=== PATIENT | female | born 1955 | race Caucasian/White ===

== ENCOUNTER → 2016-08-15 | Day surgery (SDC) | payer OTHER, BC ==
[2016-08-09 08:08] VITALS: Ht 175.3 cm; Wt 65.5 kg
[~2016-08-15] VITALS: Ht 175.3 cm; Wt 65.5 kg
[~2016-08-15] MED LIST: ASPCH81 PO; CALCTAB65 PO; LIDOCAINE HCL 2% 2 ML VIAL (20MG/ML) ONE; MIDAZOLAM HCL 1 MG/ML 2ML VIAL ONE; MULT-884 PO; OMEG12006 PO; ONDANSETRON INJ 2 MG/ML 2 ML VIAL ONE; PROPOFOL IV EMULSION 10 MG/ML 20 ML VIAL IV ONE; SODIUM CHLORIDE 0.9% 500ML 500 ML IV ONE; TURM1CAP4 PO; VTMD1000 PO; [UNRECOGNIZED DRUG - CODE] PO
--- NOTE | 2016-08-15 08:38 | Endo History and Physical ---
History & Physical Date of Service: August 15, 2016. Chief Complaint: Screening Referring Physician: Hitesh Reilly History of Present Illness 61 yo CF who presents for screening colonoscopy. Past Surgical History Hx Cardiac Surgery: No Hx Internal Defibrillator: No Hx Pacemaker: No Hx Abdominal Surgery: Yes (ADDISON BSO) Hx of Implantable Prosthesis: No Hx Post-Op Nausea and Vomiting: No Hx Cancer Surgery: No Hx Thoracic Surgery: No Hx Orthopedic: Yes (GANGLION CYST REMOVED) Hx Urinary Tract Surgery: No Family History None Social History Smoking Status: Former Smoker Hx Substance Use: No Hx Alcohol Use: No Allergies Coded Allergies: No Known Allergies (Unverified , 08/09/16) Current Medications Reported Home Medications Medications Dose Route/Sig Max Daily Dose Days Date Category Turmeric (Turmeric (Curcuma Longa)) 500 Mg Cap 2 Cap PO QAM 06/29/16 Reported Calcium 500 + D (Calcium Carbonate-Vitamin D) 1 Tab Tab 1 Tab PO QAM 02/20/14 Reported Vitamin D3 (Cholecalciferol) 1,000 Inter.unit Tab 1,000 PO QAM 02/20/14 Reported Vitamin B-12 Tr (Cyanocobalamin) 1,000 Mcg Tab 1,000 Mcg PO QAM 02/20/14 Reported Multi Vitamin Daily (Multiple Vitamin) 1 Tab Tab 1 Tab PO QAM 02/20/14 Reported Aspirin Low Strength (Aspirin) 81 Mg Chew 81 Mg PO HS 02/20/14 Reported [place] 3 ([place]-3 Fatty Acids) 1 Cap Cap 1 Cap PO QAM 02/20/14 Reported Vital Signs Weight (Kilograms): 65.45 Height (Feet): 5 Height (Inches): 9 Date Time Temp Pulse Resp B/P Pulse Ox O2 Delivery O2 Flow Rate FiO2 08/15/16 08:00 36.6 60 16 159/94 100 Room Air Physical Exam General Appearance: WD/WN, no apparent distress Respiratory/Chest: Auscultation: breath sounds normal Cardiovascular: Heart Auscultation: RRR Abdomen: Bowel Sounds: normal Inspection & Palpation: soft, non-distended, no tenderness, guarding & rebound Assessment and Plan Assessment: 61 yo CF who presents for screening colonoscopy. Plan: Proceed with colonoscopy
--- NOTE | 2016-08-15 09:18 | Anesthesiology Progress Note ---
Anesthesia Post Op Note Date & Time August 15, 2016 at 09:18 Vital Signs Pain Intensity: 0 Vital Signs Past 12 Hours Date Time Temp Pulse Resp B/P Pulse Ox O2 Delivery O2 Flow Rate FiO2 08/15/16 08:00 36.6 60 16 159/94 100 Room Air Notes Mental Status: alert / awake / arousable, participated in evaluation Pt Amnestic to Procedure: Yes Nausea / Vomiting: adequately controlled Pain: adequately controlled Airway Patency, RR, SpO2: stable & adequate BP & HR: stable & adequate Hydration State: stable & adequate Anesthetic Complications: no major complications apparent
--- NOTE | 2016-08-15 09:27 | Discharge Instructions ---
Endoscopy Patient Instructions Date / Procedure(s) Performed August 15, 2016. Colonoscopy Allergy Information Coded Allergies: No Known Allergies (Unverified , 08/09/16) Discharge Date / Findings August 15, 2016. Internal hemorrhoids Medication Instructions OK to resume all medications today as prescribed Reported Home Medications Medications Dose Route/Sig Max Daily Dose Days Date Category Turmeric (Turmeric (Curcuma Longa)) 500 Mg Cap 2 Cap PO QAM 06/29/16 Reported Calcium 500 + D (Calcium Carbonate-Vitamin D) 1 Tab Tab 1 Tab PO QAM 02/20/14 Reported Vitamin D3 (Cholecalciferol) 1,000 Inter.unit Tab 1,000 PO QAM 02/20/14 Reported Vitamin B-12 Tr (Cyanocobalamin) 1,000 Mcg Tab 1,000 Mcg PO QAM 02/20/14 Reported Multi Vitamin Daily (Multiple Vitamin) 1 Tab Tab 1 Tab PO QAM 02/20/14 Reported Aspirin Low Strength (Aspirin) 81 Mg Chew 81 Mg PO HS 02/20/14 Reported [place] 3 ([place]-3 Fatty Acids) 1 Cap Cap 1 Cap PO QAM 02/20/14 Reported Provider Instructions Activity Restrictions - No exercising or heavy lifting for 24 hours. - Do not drink alcohol the day of the procedure. - Do not drive a car or operate machinery until the day after the procedure. - Do not make any important decisions or sign important papers in 24 hours after the procedure. Following Day: - Return to full activity which may include returning to work/school. Diet Start your diet with liquids and light foods (jello, soup, juice, toast). Then eat your usual diet if not nauseated. Treatment For Common After Affects For mild abdominal pain, bloating, or excessive gas: - Rest - Eat lightly - Lie on right side Follow-Up Information Follow-up with Hitesh Reilly as scheduled Anesthesia Information What You Should Know You have had a procedure that required some medicine to reduce anxiety and discomfort. This treatment is called moderate sedation. After receiving the treatment, you may be sleepy, but you will be able to breathe on your own. The effects of the treatment may last for several hours. Follow these instructions along with Activity/Diet recommendations noted above: * Do NOT do anything where dizziness or clumsiness would be dangerous. * Rest quietly at home today, then you can be up and about tomorrow. * Have a responsible person stay with you the rest of today. * You may have had an I.V. today. If so, you may take the dressing off later today. Recommendations Call your doctor if: * Trouble breathing * Continuous vomiting for more than 24 hours * Temperature above 101 degrees * Severe abdominal pain or bloating * Pain not relieved by pain medicine ordered * There is increased drainage or redness from any incision * A large amount of rectal bleeding greater than 2-3 tablespoons. (If you had a polyp/s removed or have hemorrhoids, a small amount of blood - from the rectum is to be expected.) * You have any unanswered questions or concerns. IN THE EVENT OF A SERIOUS EMERGENCY, GO TO THE NEAREST EMERGENCY ROOM Your discharge instructions were prepared by provider Soren Emmanuel. Patient Instructions Signature Page Deana Landers Patient (or Guardian) Signature/Date: I have read and understand the instructions given to me by my caregivers. Caregiver/RN/Doctor Signature/Date: The above-named patient and/or guardian has received patient instructions on this date. + Original Patient Signature Page (only) stays with chart. Please make copy for patient.
--- NOTE | 2016-08-15 09:27 | GI REPORT ---
Procedure Date: 08/15/2016 8:39 AM Procedure: Colonoscopy Indications: Screening for colorectal malignant neoplasm Medicines: Monitored Anesthesia Care Complications: No immediate complications. Estimated Blood Loss: Estimated blood loss: none. Procedure: Pre-Anesthesia Assessment: - Prior to the procedure, a History and Physical was performed, and patient medications and allergies were reviewed. The patient's tolerance of previous anesthesia was also reviewed. The risks and benefits of the procedure and the sedation options and risks were discussed with the patient. All questions were answered, and informed consent was obtained. Prior Anticoagulants: The patient has taken aspirin, last dose was 2 days prior to procedure. ASA Grade Assessment: II - A patient with mild systemic disease. After reviewing the risks and benefits, the patient was deemed in satisfactory condition to undergo the procedure. After I obtained informed consent, the scope was passed under direct vision. Throughout the procedure, the patient's blood pressure, pulse, and oxygen saturations were monitored continuously. The scope was introduced through the anus and advanced to the terminal ileum. The colonoscopy was performed without difficulty. The patient tolerated the procedure well. The quality of the bowel preparation was good. The ileocecal valve, appendiceal orifice, and rectum were photographed. Findings: Non-bleeding internal hemorrhoids were found during retroflexion. The hemorrhoids were small. The exam was otherwise without abnormality. Impression: - Non-bleeding internal hemorrhoids. - The examination was otherwise normal. - No specimens collected. Recommendation: - Resume previous diet. - Continue present medications. - Repeat colonoscopy in 10 years for surveillance. - Return to primary care physician as previously scheduled. Soren Emmanuel DO 08/15/2016 9:26:51 AM This report has been signed electronically. Note Initiated On: 08/15/2016 8:39 AM I attest to the content of the Intraoperative Record and orders documented therein, exceptions below
[2016-08-15 09:40] VITALS: BP 159/90; PULSE 51; O2SAT 97
== END | disposition home or self-care (01) ==
LOC: C.GI 07:16
PROVIDERS: ATTEND Internal Medicine
DX: Z12.11 Encounter for screening for malignant neoplasm of colon (principal); K64.8 Other hemorrhoids; Z87.891 Personal history of nicotine dependence; Z90.710 Acquired absence of both cervix and uterus; Z90.722 Acquired absence of ovaries, bilateral; Z90.79 Acquired absence of other genital organ(s); Z79.82 Long term (current) use of aspirin

== ENCOUNTER → 2016-08-16 | Outpatient (CLI) | payer OTHER, BC ==
[~2016-08-16] MED LIST changes: -LIDOCAINE HCL 2% 2 ML VIAL (20MG/ML) ONE; -MIDAZOLAM HCL 1 MG/ML 2ML VIAL ONE; -ONDANSETRON INJ 2 MG/ML 2 ML VIAL ONE; -PROPOFOL IV EMULSION 10 MG/ML 20 ML VIAL IV ONE; -SODIUM CHLORIDE 0.9% 500ML 500 ML IV ONE
[2016-08-16 13:16] LABS: BASO % 1.1 %; BASO ABS # 0.03 K/uL (0-0.2); COMPLETE YES; EOS % 2.2 %; HEMATOCRIT 39.7 % (37-47); LYMPH % 27.7 %; LYMPH ABS # 0.76 K/uL (1.2-3.4); MEAN CELL VOLUME 91.9 fL (80-100); MEAN CORPUSCULAR HEMOGLOBIN 30.3 pg (25-34); MONO % 7.3 %; NEUT % 61.7 %; PLATELET COUNT 206 K/uL (130-400); RED BLOOD COUNT 4.32 M/uL (4.2-5.4); WHITE BLOOD COUNT 2.74 K/uL (4.8-10.8)
[2016-08-16 15:07] LABS: CALCIUM 9.9 mg/dl (8.5-10.1)
[2016-08-16 15:11] LABS: ALT/SGPT 21 U/L (12-78); AST/SGOT 15 U/L (15-37); BLOOD UREA NITROGEN 10 mg/dl (7-18); BUN/CREATININE RATIO 11.3 (10-20); CARBON DIOXIDE 27 mmol/L (21-32); CHLORIDE 109 mmol/L (98-107); CHOLESTEROL 207 mg/dl (0-200); CREATININE 0.91 mg/dl (0.60-1.20); GLUCOSE 87 mg/dl (70-99); POTASSIUM 3.6 mmol/L (3.5-5.1); SODIUM 144 mmol/L (136-145); TRIGLYCERIDES 83 mg/dl (0-150); VERY LOW DENSITY LIPOPROT CALC 17 mg/dl
[2016-08-16 15:21] LABS: ALB/GLOB RATIO 1.3 (0.9-2); ALKALINE PHOSPHATASE 75 U/L (45-117); CHOLESTEROL/HDL RATIO 2.9; HDL CHOLESTEROL 72 mg/dl; LDL CHOLESTEROL CALCULATED 118 mg/dl
== END | disposition home or self-care (01) ==
LOC: C.LABBC 09:44
PROVIDERS: ATTEND Physician Assistant Medical
DX: I10 Essential (primary) hypertension (principal); R53.83 Other fatigue; D72.819 Decreased white blood cell count, unspecified

== ENCOUNTER → 2016-08-23 | Outpatient (CLI) | payer OTHER, BC ==
[2016-08-23 13:34] LABS: BASO % 1.2 %; BASO ABS # 0.04 K/uL (0-0.2); COMPLETE YES; EOS % 1.7 %; HEMATOCRIT 38.6 % (37-47); LYMPH % 22.5 %; LYMPH ABS # 0.78 K/uL (1.2-3.4); MEAN CELL VOLUME 91.5 fL (80-100); MEAN CORPUSCULAR HEMOGLOBIN 30.3 pg (25-34); MEAN CORPUSCULAR HGB CONC 33.2 g/dl (32-36); MEAN PLATELET VOLUME 8.8 fL (7.4-10.4); MONO % 6.6 %; PLATELET COUNT 208 K/uL (130-400); RED BLOOD COUNT 4.22 M/uL (4.2-5.4); WHITE BLOOD COUNT 3.46 K/uL (4.8-10.8)
== END | disposition home or self-care (01) ==
LOC: C.LABBC 11:37
PROVIDERS: ATTEND Physician Assistant Medical
DX: D72.819 Decreased white blood cell count, unspecified (principal)

== ENCOUNTER → 2016-08-25 | Outpatient (CLI) | payer OTHER, BC ==
--- NOTE | 2016-08-25 13:04 | DIAGNOSTIC IMAGING REPORT ---
CAROTID ARTERY ULTRASOUND CLINICAL HISTORY: Hypertension. Headache. COMPARISON STUDY: Carotid ultrasound March 02, 2007. TECHNIQUE: Real-time, grayscale, and color Doppler sonography of the carotid and vertebral arteries was performed. Images were viewed in the transverse and longitudinal planes. FINDINGS: There is minimal atherosclerotic plaque. Velocity measurements are listed below. COMMON CAROTID PEAK SYSTOLIC VELOCITY (CM/S): RIGHT 75 LEFT 91 ICA PEAK SYSTOLIC VELOCITY (CM/S): RIGHT 91 LEFT 78 The systolic ratios between the internal to common carotid arteries are normal. Antegrade flow is seen in the vertebral arteries. The external carotid arteries are patent. Blood pressure in the right arm measured 135/78. Blood pressure in the left arm measured 138/79. IMPRESSION: No evidence of a hemodynamically significant stenosis. Electronically signed by: Noble Vizcaino M.D. 08/25/2016 1:03 PM Dictated Date/Time: 08/25/2016 1:01 PM
--- NOTE | 2016-08-29 10:49 | CODING QUERY MEDICAL NECESSITY ---
SUPPORTING DIAGNOSIS NEEDED Kailee PA, A supporting diagnosis is required for the test/procedure performed on this patient in order for us to be reimbursed by the patient's insurance. Please provide a supporting diagnosis for the following test/procedure listed below next to the test name along with your signature. *If there is no additional diagnosis for this patient that would support the following test/procedure please document that below next to the test/procedure. Test(s)/Procedure(s) that require a supporting diagnosis: * ([id number]) (CAROTID DOP) DUPLEX NECK ARTER DIAGNOSIS: DATE OF SERVICE: 08/25/16 Provider Signature: Date: Thank you Avel Murray Health Information Management Once completed, please kindly fax back to [phone] For questions please call [phone]
== END | disposition home or self-care (01) ==
LOC: C.ULTRBC 12:21
PROVIDERS: ATTEND Physician Assistant Medical
DX: I10 Essential (primary) hypertension (principal); R51 Headache; I65.29 Occlusion and stenosis of unspecified carotid artery

== ENCOUNTER → 2016-08-31 | Outpatient (CLI) | payer OTHER, BC ==
[~2016-08-31] MED LIST changes: +GADAVIST IV PRN
--- NOTE | 2016-08-31 11:44 | DIAGNOSTIC IMAGING REPORT ---
MRI OF THE BRAIN COMBO CLINICAL HISTORY: Headache. COMPARISON STUDY: CT the brain dated 02/20/2014. MRI of the brain dated 05/22/2012. TECHNIQUE: MRI of the brain was performed utilizing various T1 and T2-weighted sequences in the axial, sagittal, and coronal planes. Contrast-enhanced sequences were acquired following the administration of 6 cc of Gadavist. FINDINGS: Brain parenchyma: There are age-related involutional changes noting mild patchy subcortical and periventricular microangiopathic disease. There is no hemorrhage or mass effect. There is no restricted diffusion to suggest acute ischemia. No enhancing mass lesion is identified on the postcontrast images. Boyd-white matter differentiation is preserved. No extra-axial fluid collection is seen. The cerebellar tonsils are normal in configuration. Ventricles, sulci, and cisterns: Prominent secondary to involutional change. Pituitary and sella: Unremarkable. Intracranial vasculature: Normal flow voids are maintained at the skull base. Orbits: The bony orbits are grossly intact. Orbital contents are normal in appearance. Sinuses and mastoids: There is a left mastoid effusion. The right mastoid air cells and the paranasal sinuses are clear. Calvarium: Unremarkable. Cervical cord: Partially visualized cervical spinal cord is normal in morphology and signal intensity. IMPRESSION: No acute intracranial abnormality. Electronically signed by: Hemant Vaca M.D. 08/31/2016 11:42 AM Dictated Date/Time: 08/31/2016 11:36 AM
== END | disposition home or self-care (01) ==
LOC: C.MRIBC 10:32
PROVIDERS: ATTEND Physician Assistant Medical
DX: R51 Headache (principal)

== ENCOUNTER → 2016-12-20 | Outpatient (CLI) | payer OTHER, MEDICARE ==
[~2016-12-20] MED LIST changes: -GADAVIST IV PRN
[2016-12-20 17:51] LABS: BASO % 0.3 %; BASO ABS # 0.01 K/uL (0-0.2); COMPLETE YES; EOS % 2.2 %; HEMATOCRIT 40.7 % (37-47); LYMPH % 24.8 %; LYMPH ABS # 0.92 K/uL (1.2-3.4); MEAN CELL VOLUME 91.7 fL (80-100); MEAN CORPUSCULAR HEMOGLOBIN 30.6 pg (25-34); MEAN CORPUSCULAR HGB CONC 33.4 g/dl (32-36); MEAN PLATELET VOLUME 8.8 fL (7.4-10.4); MONO % 7.8 %; NEUT % 64.9 %; PLATELET COUNT 191 K/uL (130-400); RED BLOOD COUNT 4.44 M/uL (4.2-5.4); WHITE BLOOD COUNT 3.71 K/uL (4.8-10.8)
[2016-12-20 18:30] LABS: ALT/SGPT 22 U/L (12-78); AST/SGOT 14 U/L (15-37); BLOOD UREA NITROGEN 9 mg/dl (7-18); BUN/CREATININE RATIO 10.7 (10-20); CALCIUM 8.7 mg/dl (8.5-10.1); CARBON DIOXIDE 28 mmol/L (21-32); CHLORIDE 109 mmol/L (98-107); CREATININE 0.86 mg/dl (0.60-1.20); GLUCOSE 86 mg/dl (70-99); POTASSIUM 3.9 mmol/L (3.5-5.1); SODIUM 144 mmol/L (136-145)
[2016-12-20 18:33] LABS: ALB/GLOB RATIO 1.7 (0.9-2); ALKALINE PHOSPHATASE 80 U/L (45-117); CHOLESTEROL 139 mg/dl (0-200); CHOLESTEROL/HDL RATIO 1.9; HDL CHOLESTEROL 74 mg/dl; LDL CHOLESTEROL CALCULATED 46 mg/dl; TRIGLYCERIDES 93 mg/dl (0-150); VERY LOW DENSITY LIPOPROT CALC 19 mg/dl
== END | disposition home or self-care (01) ==
LOC: C.LABPBG 15:50
PROVIDERS: ATTEND Internal Medicine Geriatric Medicine
DX: I10 Essential (primary) hypertension (principal); M54.16 Radiculopathy, lumbar region; R51 Headache; D72.819 Decreased white blood cell count, unspecified; M19.90 Unspecified osteoarthritis, unspecified site; I65.29 Occlusion and stenosis of unspecified carotid artery

== ENCOUNTER → 2017-11-17 | Outpatient (CLI) | payer OTHER, MEDICARE ==
[~2017-11-17] MED LIST changes: +OPTIRAY 320 IV PRN
--- NOTE | 2017-11-17 11:54 | DIAGNOSTIC IMAGING REPORT ---
CT OF THE ABDOMEN AND PELVIS WITH CONTRAST CLINICAL HISTORY: Left lower quadrant abdominal pain. COMPARISON STUDY: CT of the abdomen and pelvis February 11, 2008 and abdominal ultrasound August 23, 2017. TECHNIQUE: Following IV administration of 93 mL of Optiray-320, axial images of the abdomen and pelvis were obtained from the lung bases to the proximal femurs. Images were reviewed in the axial, sagittal, and coronal planes. IV contrast was administered without complication. A dose lowering technique was utilized adhering to the principles of ALARA. Oral contrast was administered. CT DOSE: 384.38 mGy.cm FINDINGS: Lung bases are unremarkable. A 6 mm right hepatic lobe cyst is noted. There is also a 4 mm right hepatic dome hypodense lesion which favors a cyst. The spleen, adrenal glands and pancreas are normal. There is no biliary or pancreatic ductal dilatation. A left renal cyst is noted. There is no hydronephrosis. Both nephrograms are symmetric. No ureteral calculi are identified. Caliber and wall thickness of 6 small and large bowel are normal. There is a moderate amount of stool within the colon. The appendix is normal. There is no lymphadenopathy or ascites. There is no abscess. No suspicious osseous lesions are present. Major vasculature is patent. IMPRESSION: 1. No acute process within the abdomen or pelvis. 2. No bowel obstruction. Moderate amount of stool within the colon. 3. Normal appendix. 4. Mild bladder distention. Electronically signed by: Noble Vizcaino M.D. 11/17/2017 11:53 AM Dictated Date/Time: 11/17/2017 11:47 AM
== END | disposition home or self-care (01) ==
LOC: C.CTS 09:06
PROVIDERS: ATTEND Internal Medicine Geriatric Medicine
DX: R10.32 Left lower quadrant pain (principal)

== ENCOUNTER 2019-09-20 05:04 | Inpatient (IN) ==
--- NOTE | 2019-09-10 20:48 | PAT Medication Instructions ---
Medication Instructions Date of Service September 10, 2019 Home Medications Medication Instructions Recorded atorvastatin 10 mg tablet 10 mg PO QPM #90 tab 12/18/18 metoprolol succinate 50 mg 50 mg PO QAM #90 tab 12/18/18 tablet,extended release 24 hr tramadol 50 mg tablet 50 mg PO Q8H PRN #30 tab 09/05/19 calcium carbonate-vitamin D3 [Calcium 600 + D(3)] 1 tab PO QAM cyanocobalamin (vitamin B-12) [Vitamin B-12] 1,000 mcg PO QAM multivitamin 1 tab PO QAM omega 7-cdb-mbc-fish oil [Fish Oil] 1 cap PO QAM atorvastatin 10 mg tablet 10 mg PO QPM metoprolol succinate 50 mg tablet,extended release 24 hr 50 mg PO QAM cholecalciferol (vitamin D3) 25 mcg (1,000 unit) tablet 1,000 units PO DAILY tramadol 50 mg tablet 50 mg PO Q8H PRN melatonin 5 mg PO HS STOP taking 2 weeks before surgery (or as soon as possible if surgery is within 2 weeks) omega 0-vwi-hlu-fish oil [Fish Oil] 1 cap PO QAM DO NOT take the morning of surgery calcium carbonate-vitamin D3 [Calcium 600 + D(3)] 1 tab PO QAM cyanocobalamin (vitamin B-12) [Vitamin B-12] 1,000 mcg PO QAM multivitamin 1 tab PO QAM cholecalciferol (vitamin D3) 25 mcg (1,000 unit) tablet 1,000 units PO DAILY Take morning of surgery With a small sip of water, OTHERWISE NOTHING TO EAT OR DRINK AFTER MIDNIGHT: metoprolol succinate 50 mg tablet,extended release 24 hr 50 mg PO QAM tramadol 50 mg tablet 50 mg PO Q8H PRN (okay to take up to 4 hours prior to surgery if needed) Take evening before surgery atorvastatin 10 mg tablet 10 mg PO QPM tramadol 50 mg tablet 50 mg PO Q8H PRN (if needed) melatonin 5 mg PO HS Other Notes If you have any questions please call us at [phone] or [phone] or [phone] or [phone]
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
--- NOTE | 2019-09-12 09:26 | XRay Report ---
XR chest Pre-admission PA/Lat HISTORY: 64 years-old Female PAT preoperative exam. No acute chest complaints COMPARISON: Chest CT 01/29/2007, thoracic spine MRI 02/28/2011 TECHNIQUE: PA and lateral views of the chest FINDINGS: Cardiomediastinal and hilar silhouettes are within normal limits. Emphysema with hyperinflation. No p neumothorax, pleural effusion, airspace consolidation or overt pulmonary edema. Bones of the chest ap pear grossly intact. Remote appearing upper thoracic compression deformities. IMPRESSION: Emphysema without acute process. ACT 112: Negative or not required by law. The above report was generated using voice recognition software. It may contain grammatical, syntax o r spelling errors. Electronically signed by: Howie Mcclain M.D. 09/12/2019 9:25 AM
[2019-09-12 11:24] LABS: Basophils # (auto) 0.02 K/uL (0-0.2); Basophils % (auto) 0.6 %; Eosinophils # (auto) 0.08 K/uL (0-0.5); Eosinophils % (auto) 2.3 %; Hematocrit (blood only) 38.9 % (37-47); Hemoglobin 13.1 g/dL (12.0-16.0); Lymphocytes # (auto) 0.95 K/uL (1.2-3.4); Lymphocytes % (auto) 27.2 %; Mean Corpuscular Hemoglobin 31.3 pg (25-34); Mean Corpuscular Hgb Conc 33.7 g/dL (32-36); Mean Corpuscular Volume 93.1 fL (80-100); Mean Platelet Volume 8.8 fL (7.4-10.4); Monocytes # (auto) 0.31 K/uL (0.11-0.59); Monocytes % (auto) 8.9 %; Neutrophils # (auto) 2.13 K/uL (1.4-6.5); Platelet Count 195 K/uL (130-400); RDW Coefficient of Variation 13.1 % (11.5-14.5); RDW Standard Deviation 44.7 fL (36.4-46.3); Red Blood Count 4.18 M/uL (4.2-5.4); White Blood Count 3.49 K/uL (4.8-10.8)
[2019-09-12 11:40] LABS: Calcium 9.3 mg/dl (8.5-10.1); Creatinine Clr Calc Pharmacy 68.3 ml/min; Est GFR (African American) 81.6; Est GFR (Non-African American) 70.4; Potassium 4.3 mmol/L (3.5-5.1)
[2019-09-12 11:44] LABS: Partial Thromboplastin Ratio 0.9; Partial Thromboplastin Time 25.6 Seconds (21.0-31.0); Prothrombin Time 10.5 Seconds (9.0-12.0)
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
[2019-09-20] MEDS ORDERED: dexAMETHasone 4 MG TAB PO SCH (06:00)
[2019-09-20] MEDS ORDERED: TRANEXAMIC ACID 1,000 MG **IV Intra-op IV SCH (06:00)
[2019-09-20] MEDS ORDERED: CEFAZOLIN 1000MG 1,000 MG/7.5 ML SYR IV SCH (06:00)
[2019-09-20] MEDS ORDERED: GABAPENTIN 600 MG DOSE PO SCH (06:00)
[2019-09-20] MEDS ORDERED: FAMOTIDINE 20 MG TAB PO SCH (06:00)
[2019-09-20] MEDS ORDERED: TRANEXAMIC ACID 1,000 MG **IV Pre-op IV SCH (06:00)
[2019-09-20] MEDS ORDERED: ROPIVACAINE 0.5% HCL/PF 150 MG, BUPIVACAINE 0.5% MPF 30 ML, EPINEPHrine 0.15 MG, Ketoro... INFIL SCH (06:00)
[2019-09-20] MEDS ORDERED: LR 500ML BOLUS, THEN 15ML/HR IV SCH (06:00)
[2019-09-20] MEDS ORDERED: ACETAMINOPHEN 500 MG TAB PO SCH (06:00)
[2019-09-20] MEDS ORDERED: LR 60ML/HR IV SCH (06:00)
[2019-09-20] MEDS ORDERED: BUPIVACAINE 0.5 % 5 MG/1 ML PF 10ML VIAL ONE (06:17)
--- NOTE | 2019-09-20 06:43 | History & Physical Bridge Note ---
Date of Service September 20, 2019 History & Physical Bridge Note I have examined the patient, reviewed the History & Physical and in the interval since the performance of the History & Physical I have noted the following changes of clinical significance: no changes noted
[2019-09-20] MEDS ORDERED: MIDAZOLAM HCL 1 MG/ML 2ML VIAL ONE (06:45)
[2019-09-20] MEDS ORDERED: ATROPINE SULFATE 0.1 MG/ML 10ML SYR IV PRN (07:12)
[2019-09-20] MEDS ORDERED: ONDANSETRON INJ 2 MG/ML 2 ML VIAL IV PRN ×2 (07:12→11:00)
[2019-09-20] MEDS ORDERED: fentaNYL citrate 100 MCG/2 ML VIAL IV PRN (07:12)
[2019-09-20] MEDS ORDERED: HYDROmorphone INJ 1 MG/ML SYRINGE IV PRN (07:12)
[2019-09-20] MEDS ORDERED: ePHEDrine sulfate 50 MG/ML AMP IV PRN (07:12)
[2019-09-20] MEDS ORDERED: LABETALOL HCL IV 5 MG/ML 20ML IV PRN (07:12)
[2019-09-20] MEDS ORDERED: MEPERIDINE HCL 25 MG/ML CARP/VIAL IV PRN (07:12)
[2019-09-20] MEDS ORDERED: PHENYLEPHRINE 100MCG/ML 5ML SYR IV PRN (07:12)
[2019-09-20] MEDS ORDERED: ePHEDrine sulfate 50 MG/ML SYR ONE (07:23)
[2019-09-20] MEDS ORDERED: LIDOCAINE HCL 2% 2 ML VIAL/AMP(20MG/ML) INFIL ONE (07:23)
[2019-09-20] MEDS ORDERED: PROPOFOL IV EMULSION 10 MG/ML 20 ML VIAL IV ONE ×2 (07:23→08:12)
--- NOTE | 2019-09-20 08:03 | Operative Report ---
PG Post Operative Report Pre & Post Diagnosis Operation Date: 09/20/19 07:00 Pre-Op Diagnosis: Right Hip Degenerative Joint Disease Post-Op Diagnosis: Right Hip Degenerative Joint Disease I identified the patient and participated in the time-out.: Yes Procedure Operation Date: 09/20/19 07:00 Actual Procedures p Right Anterior Total Hip Arthroplasty(Right) - Pernell Fam DO Surgeon Pernell Fam DO Fret Saw Operator Pernell Barreto PAC Estimated Blood Loss 200 Findings Consistent with Post-Op Diagnosis Specimens Right femoral head Complications none Disposition Disposition: Recovery Room Indications Deana is a pleasant 64-year-old female who presented my office with complaints of chronic increasing right hip and groin pain. X-rays and clinical examination are diagnostic for primary osteoarthritis of the right hip. After failing conservative treatment, she has elected to proceed with a right anterior total hip arthroplasty. Description of Procedure Implants used I used a Biomet Taperloc total hip arthroplasty system with a size 14 standard offset micro Taperloc stem, a 50 mm G7 cup with a 25mm screw, an E1 polyethylene liner, a 36 mm ceramic head with a +3 neck. Deana arrived at the hospital for the above procedure. She was seen in the preoperative holding area and the operative extremity was identified and signed. She was given a spinal anesthetic, a preoperative antibiotic, and TXA. She was then taken back to the operating room and laid on the table in the supine position. She was given basic sedation. The operative leg was secured to a Puristst leg positioner. The hip was then prepped and draped in sterile fashion. A timeout was done and the patient and the operative extremity was properly identified. An anterior approach was used. Dissection was taken down through the fascia and the tensor muscle belly was retracted laterally and the rectus was retracted medially. The circumflex vessels were identified and ligated. The capsule was then incised and tagged for later repair. The femoral neck was then cut and the femoral head was removed. The acetabulum was exposed. Time was spent doing a complete circumferential labral release. Sequential reaming of the acetabulum up to a size 49 reamer was done. Final reamings were done under fluoroscopy to ensure appropriate version. A Biomet 50 mm G7 cup was then impacted into place. A single 25 mm screw was placed. The E1 polyethylene liner was then snapped into place. Surrounding soft tissues were then injected with 100 cc of an orthopedic pain control cocktail. The proximal femur was then exposed. Sequential broaching up to a size 14 broach was done. Off that broach a size 36 head with a +3 neck was trialed. The hip was reduced and fluoroscopic images showed anatomic alignment of the implants in acceptable length. The broach was removed. The final size 14 standard offset micro Taperloc stem was then impacted into place. A ceramic 36 mm head with a +3 neck was then impacted onto the stem and the hip was reduced. Final fluoroscopic images showed anatomic alignment of the hip. The capsule was then closed with #1 Vicryl suture. A dilute betadyne lavage was then done for 3 minutes. The joint was then irrigated with normal saline solution. The fascia was closed with #1 PDS suture. Skin was closed with 2-0 Vicryl, jae, and a Abi VAC dressing. She was then transferred to a hospital bed and taken to the post anesthesia care unit in stable condition. She tolerated the procedure well. Pernell Barreto PA-C, was present for the entire procedure. He was critical for patient positioning, prepping, draping, retraction exposure, wound closure and application of sterile dressing. I attest to the content of the Intraoperative Record and any orders documented therein. Any exceptions are noted below.
--- NOTE | 2019-09-20 08:34 | Fluoroscopy Report ---
FL hip RT 1V CLINICAL HISTORY: RT ANTERIOR TOTAL HIP COMPARISON STUDY: None FLUOROSCOPY TIME: 22 seconds NUMBER OF FLUOROSCOPIC IMAGES: 3 FINDINGS: Image intensifier support for right hip total arthroplasty IMPRESSION: Image intensifier support for right total hip arthroplasty. ACT 112: Negative or not required by law. The above report was generated using voice recognition software. It may contain grammatical, syntax or spelling errors. Electronically signed by: Stewart Christina M.D. 09/20/2019 8:32 AM
--- NOTE | 2019-09-20 08:48 | XRay Report ---
XR hip 1V RT w pelvis CLINICAL HISTORY: IN PACU - A/P PELVIS and LATERAL HIP COMPARISON: None. DISCUSSION: Anatomic alignment post total right hip arthroplasty. Could contact between prosthetic an d underlying bone. Expected soft tissue postoperative change. IMPRESSION: Anatomic alignment post total right hip arthroplasty. ACT 112: Negative or not required by law. The above report was generated using voice recognition software. It may contain grammatical, syntax or spelling errors. Electronically signed by: Stewart Christina M.D. 09/20/2019 8:47 AM
--- NOTE | 2019-09-20 09:15 | Anesthesiology Progress Note ---
Date of Service September 20, 2019 Anesthesia Post Procedure Vital Signs Vital Signs: Temp Pulse Pulse Resp BP BP Pulse Ox 09/20/19 09:10 53 L 19 123/72 96 09/20/19 09:00 54 L 14 110/89 96 09/20/19 08:50 54 L 18 126/73 96 09/20/19 08:40 53 L 18 118/71 98 09/20/19 08:30 36.2 C L 66 22 131/72 98 09/20/19 05:36 36.8 C 52 L 16 147/88 H 99 Pain Intensity Right Hip: Pain Intensity: 4 Transfer of Care Handoff Completed per policy Notes Mental Status: alert / awake / arousable Patient Amnestic to Procedure: Yes Nausea / Vomiting: adequately controlled Pain: adequately controlled Airway Patency, RR, SpO2: stable & adequate BP & HR: stable & adequate Hydration State: stable & adequate Neuraxial Anesthesia: was administered and sensory block is resolving Anesthetic Complications: no major complications apparent and Pt Satisfied with anesthetic care
[2019-09-20] MEDS ORDERED: HYDROmorphone INJ 0.5 MG/0.5 ML SYR IV PRN (11:00)
[2019-09-20] MEDS ORDERED: bisacodyL 10 MG SUPP PR PRN (11:00)
[2019-09-20] MEDS ORDERED: MAGNESIUM HYDROXIDE SUSP 30 ML UDC PO PRN (11:00)
[2019-09-20] MEDS ORDERED: METOCLOPRAMIDE HCL INJ 5 MG/ML 2 ML VIAL IV PRN (11:00)
[2019-09-20] MEDS ORDERED: NALOXONE HCL 0.4 MG/1 ML VIAL/CARP IV PRN (11:00)
[2019-09-20] MEDS ORDERED: SODIUM CHLORIDE 0.9% 1000ML 1,000 ML IV SCH (12:30)
[2019-09-20] MEDS: METOPROLOL SUCC 50MG EXT REL TAB PO SCH (12:46)
[2019-09-20] MEDS: MULTIVITAMIN TAB PO SCH (12:49)
[2019-09-20] MEDS: KETOROLAC 30 MG/ML VIAL IV SCH ×3 (12:49→23:13)
[2019-09-20] MEDS: ASPIRIN 81 MG ECTAB PO SCH ×2 (12:49→21:30)
[2019-09-20] MEDS: DOCUSATE SODIUM 100 MG CAP PO SCH ×2 (12:49→21:30)
[2019-09-20] MEDS: ACETAMINOPHEN 500 MG TAB PO SCH ×2 (14:43→21:30)
[2019-09-20] MEDS: CEFAZOLIN 2000MG 2,000 MG/15 ML SYR IV SCH ×2 (14:43→23:13)
[2019-09-20] MEDS: SENNA 8.6 MG TAB PO SCH (21:30)
[2019-09-20] MEDS: ATORVASTATIN 10 MG TAB PO SCH (21:30)
[2019-09-20] MEDS: MELATONIN 3 MG TAB PO PRN (23:36)
[2019-09-21] MEDS: OXYCODONE HCL IR 5 MG TAB (IMMEDIATE RELEASE) PO PRN ×3 (03:46→22:37)
[2019-09-21] MEDS: ACETAMINOPHEN 500 MG TAB PO SCH ×3 (05:51→21:47)
[2019-09-21] MEDS: KETOROLAC 30 MG/ML VIAL IV SCH ×4 (05:52→23:58)
[2019-09-21 07:17] LABS: Basophils # (auto) 0.01 K/uL (0-0.2); Basophils % (auto) 0.1 %; Hematocrit (blood only) 32.6 % (37-47); Hemoglobin 10.9 g/dL (12.0-16.0); Immature Granulocytes # (auto) 0.03 K/uL (0.00-0.02); Immature Granulocytes % (auto) 0.3 %; Lymphocytes # (auto) 0.59 K/uL (1.2-3.4); Lymphocytes % (auto) 6.5 %; Mean Corpuscular Hemoglobin 30.6 pg (25-34); Mean Corpuscular Hgb Conc 33.4 g/dL (32-36); Mean Corpuscular Volume 91.6 fL (80-100); Mean Platelet Volume 9.2 fL (7.4-10.4); Monocytes # (auto) 0.65 K/uL (0.11-0.59); Monocytes % (auto) 7.1 %; Neutrophils # (auto) 7.86 K/uL (1.4-6.5); Platelet Count 156 K/uL (130-400); RDW Coefficient of Variation 13.1 % (11.5-14.5); RDW Standard Deviation 44.2 fL (36.4-46.3); Red Blood Count 3.56 M/uL (4.2-5.4); White Blood Count 9.14 K/uL (4.8-10.8)
[2019-09-21 07:44] LABS: BUN Creatinine Ratio 16.6 (10-20); Calcium 8.4 mg/dl (8.5-10.1); Creatinine Clr Calc Pharmacy 78.2 ml/min; Est GFR (African American) 96.1; Est GFR (Non-African American) 82.9; Potassium 3.9 mmol/L (3.5-5.1)
[2019-09-21] MEDS ORDERED: dexAMETHasone 4 MG TAB PO SCH (08:00)
--- NOTE | 2019-09-21 08:00 | Orthopedic Progress Note ---
Date of Service September 21, 2019 Assessment & Plan (1) History of right hip replacement: Overall she is doing very well. She is not having much pain in the right hip. She will be seen by physical therapy today for ambulation and range of motion exercises. She is on aspirin for DVT prophylaxis. We will see how she does today with physical therapy, if she is feeling well later this afternoon she can be discharged home, otherwise, she can stay until tomorrow. Present on Admission?: Yes Shanice Leblanc was seen and examined at bedside this morning. Overall she is doing very well. She is not having too much pain in the right hip. She has been up and ambulating around the room. She has no complaints. Physical Exam Musculoskeletal: On physical examination of the right hip, the Abi VAC dressing is to suction. Her leg lengths are equal. She has active dorsiflexion and plantarflexion of her right ankle. Results & Data ([facility]) Vital Signs (Past 12 Hours) Vital Signs Temp Pulse Resp BP Pulse Ox 09/21/19 03:33 36.5 C 52 L 18 107/64 95 09/20/19 23:09 36.4 C L 50 L 20 126/79 95 Laboratory Results H & H 09/12/19 09/21/19 Range/Units 09:56 06:36 Hgb 13.1 10.9 L (12.0-16.0) g/dL Hct 38.9 32.6 L (37-47) % Coagulation 09/12/19 Range/Units 09:56 INR 1.0 (0.9-1.1) Diagnostic Findings Postoperative x-rays of the right hip show the prosthesis to be in anatomic alignment without any evidence of fracture, dislocation, or loosening. PG Care Time/CCT Total # of Minutes Spent Total Time Spent with Patient: Total time spent is greater than 50% in coordination of care (as documented) at patient's floor/unit and/or counseling patient: Coding Level of Care Code None Diagnoses History of right hip replacement Z96.641
[2019-09-21] MEDS: MULTIVITAMIN TAB PO SCH (08:21)
[2019-09-21] MEDS: METOPROLOL SUCC 50MG EXT REL TAB PO SCH (08:22)
[2019-09-21] MEDS: ASPIRIN 81 MG ECTAB PO SCH ×2 (08:23→20:47)
[2019-09-21] MEDS: DOCUSATE SODIUM 100 MG CAP PO SCH ×2 (08:23→20:46)
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
[2019-09-21] MEDS: SENNA 8.6 MG TAB PO SCH (20:46)
[2019-09-21] MEDS: cephALEXin 500 MG CAP PO SCH (20:46)
[2019-09-21] MEDS: ATORVASTATIN 10 MG TAB PO SCH (20:47)
[2019-09-21] MEDS: MELATONIN 3 MG TAB PO PRN (21:47)
[2019-09-22] MEDS: KETOROLAC 30 MG/ML VIAL IV SCH (05:29)
[2019-09-22] MEDS: ACETAMINOPHEN 500 MG TAB PO SCH (05:29)
--- NOTE | 2019-09-22 06:50 | Orthopedic Progress Note ---
Date of Service September 22, 2019 Assessment & Plan (1) History of right hip replacement: Overall she is doing very well. She is not having much pain in the right hip. She will be seen by physical therapy again today for ambulation and range of motion exercises. She can be discharged home later today. She is on aspirin for DVT prophylaxis. She will follow-up with orthopedics in 2 weeks. Present on Admission?: Yes Shanice Leblanc was seen and examined at bedside this morning. Overall she is doing very well. She is happy she had the full day yesterday to help recover. She worked well with physical therapy. Her pain is controlled. She has no complaints. Physical Exam Musculoskeletal: On physical examination of the right hip, the Abi VAC dressing is to suction. Her leg lengths are equal. She has active dorsiflexion and plantarflexion of her right ankle. Results & Data ([facility]) Vital Signs (Past 12 Hours) Vital Signs Temp Pulse Resp BP Pulse Ox 09/22/19 06:16 36.6 C 60 14 117/76 94 09/21/19 22:52 36.4 C L 50 L 15 133/73 97 PG Care Time/CCT Total # of Minutes Spent Total Time Spent with Patient: Total time spent is greater than 50% in coordination of care (as documented) at patient's floor/unit and/or counseling patient: Coding Level of Care Code None Diagnoses History of right hip replacement Z96.641
--- NOTE | 2019-09-22 07:00 | Discharge Summary ---
Date of Service September 22, 2019 Admission HPI Per Admitting Provider Deana is a pleasant 64-year-old female who is been having a several month history of increasing right hip pain. It is been very severe at times. She was in [place] for the winter and she saw an orthopedist where x-rays showed advanced osteoarthritis of the hip. After failing extensive conservative treatment, she has elected to proceed with a right anterior total hip arthroplasty. Principal Diagnosis Right total hip arthroplasty Discharge Data Allergies Allergy/AdvReac Type Severity Reaction Status Date / Time sertraline [From Zoloft] AdvReac Unknown Nausea Verified 09/20/19 06:07 Consultations 09/21/19 08:00 Consult Case Management - Discharge Planning Routine Procedures Performed Operation Date: 09/20/19 07:00 Actual Procedures p Right Anterior Total Hip Arthroplasty(Right) - Pernell Fam DO Ordered Studies 09/20/19 07:00 FL fluoroscopy <1hr Routine FL hip RT 1V Routine Hospital Course (1) History of right hip replacement: On September 19, 2020.arrived at [facility] and underwent a right anterior total hip arthroplasty without complication. She had a spinal anesthetic. Postoperatively she was started on aspirin for DVT prophylaxis and transferred to the general orthopedic floors. Her hospital course was uneventful. On postop day #1 her H&H was stable and her pain was well controlled. She was able to participate well with physical therapy doing ambulation and range of motion exercises. She had a little cellulitis in her left elbow secondary to a bug bite that occurred days before the surgery. That was improving. On postop day #2 she continued to do well. She was seen once again by physical therapy. She was then discharged home. She will follow-up with orthopedics in 2 weeks. Total Time Total Time Spent Total Time Spent (In Minutes): 20 Discharge Plan Discharge Items Patient Disposition: Home - Home Health Services Reason For Visit: Right Hip Degenerative Joint Disease Discharge Diagnosis: Right hip replacement Activity: As commented below Non-emergency contact: Surgeon Call non-emergency contact if: your wound has increased redness and your wound has increased drainage Follow-up/Referrals: Pernell Lawton DO [Primary Care Provider] - Diet: Regular Addtl Attending Provider Instructions: Activity and Therapy Recommendations: * If you are using [facility] then therapy will be provided at your home until they feel you have accomplished all of your goals. * If you are using [facility] then Physical Therapy will be provided until they feel you are ready to start Outpatient Physical Therapy. * If you are not using home therapy then Outpatient Physical Therapy should start about 3-5 days from your day of surgery. Therapy will last about 6-10 weeks * You were shown a series of exercises in the hospital. Do these exercises three times each day including the exercises you were shown in physical therapy. * Get up and walk several times each day.~ For the first four weeks, try not to stand or walk for more than one hour at a time. If you do stand or walk for more than one hour, you will not hurt anything, but your leg will likely swell.~~ * As you feel comfortable, you may change from the walker or crutches to a cane and~then to independent walking. Medications: * Narcotic You will likely be sent home from the hospital with a prescription for the narcotic pain medication that worked best throughout your stay. * Aspirin Most patients will be required to take Aspirin 81mg twice a day for 6 weeks after surgery. This is obtained [id number] and a prescription is not necessary. * Other medications may be prescribed for specific circumstances. If you have any questions, please call the office at . * Resume previous home medications unless otherwise instructed TEDs/Elastic Stockings: The white elastic stockings help limit swelling and prevent blood clots from forming in your legs. The more you wear them, the more they work. Wear them for six weeks. Dressing Care: You will likely have a purple VAC dressing after surgery. This dressing will keep the incision dry and promote early healing. After about 7 days the batteries will wear out and the VAC will lose suction. Simply remove the dressing at that time and throw everything away, including the small suction machine. Then, you may leave the jae open to air or cover them with a dry dressing so they do not rub on your pants. The jae will be removed at your 2 week follow-up appointment. Showering: You may shower immediately with the purple VAC dressing. Let the shower spray hit your opposite side and slowly pat the plastic dry. Do not soak the dressing. After the dressing is removed you may shower normally with the jae exposed. Let soapy water run over the aje and pat them dry. Things To Watch For: * Drainage from the incision site that occurs more than one week after your s urgery. * Increased redness at the incision site. * Fever above 102 degrees Fahrenheit. * Unusual chest pain or shortness of breath. * Call [facility] at with any of the above problems Follow-Up Visit: Follow-up with Dr. Fam's PA (Pernell Barreto) 2-3 weeks after your day of surgery. He will remove your jae and answer any questions. If you have any additional questions or concerns, Dr Fam is usually in the office at the same time and will be available An appointment was probably scheduled when you signed-up for surgery in the [facility]. If you have any questions call Office Instructions: More detailed instructions as well as Frequently Asked Questions were provided in a folder by our office when you signed-up for surgery. Please review these instructions when you get home. If you have any further questions or concerns, please feel free to call the office at [phone] Addtl Return Clerk Provider Instructions: You will continue cephalexin (Keflex) for a total of one week of treatment for cellulitis on your arm. Please follow up with your pcp at the end of the week to ensure resolution Pending Studies at Discharge: No Stand-Alone Forms: My [facility], Smoking Cessation Medications and DC Order Prescriptions: New oxycodone 5 mg Tablet 5 mg PO Q4H PRN (Reason: pain) Qty: 30 RF: 0 cephalexin 500 mg Capsule 500 mg PO QID Qty: 24 RF: 0 aspirin 81 mg Tablet,Delayed Release (Dr/Ec) 81 mg PO BID 42 Days Qty: 0 RF: 0 Continued atorvastatin 10 mg tablet 10 mg PO QPM Qty: 90 RF: 3 metoprolol succinate 50 mg tablet extended release 24 hr 50 mg PO QAM Qty: 90 RF: 3 tramadol 50 mg tablet 50 mg PO Q8H PRN (Reason: pain) Qty: 30 RF: 0 cholecalciferol (vitamin D3) 25 mcg (1,000 unit) tablet 1,000 units PO DAILY RF: 0 multivitamin Tablet 1 tab PO QAM RF: 0 cyanocobalamin (vitamin B-12) [Vitamin B-12] 1,000 mcg Tablet 1,000 mcg PO QAM RF: 0 calcium carbonate-vitamin D3 [Calcium 600 + D(3)] 600 mg(1,500mg) -400 unit Tablet 1 tab PO QAM RF: 0 melatonin 5 mg Tablet 5 mg PO HS RF: 0 Discharge Orders: Discharge Order (Routine); Ordered 09/21/19 Ordered By: Pernell Fam Admission Data Admit Date/Time: 09/20/19 08:30 Attending Provider: Pernell Fam Admit Provider: Pernell Fam Primary Care Provider: Pernell Lawton Coding Level of Care Code D/C Day Management <30 mins Diagnoses History of right hip replacement Z96.641
[2019-09-22] MEDS: DOCUSATE SODIUM 100 MG CAP PO SCH (08:27)
[2019-09-22] MEDS: cephALEXin 500 MG CAP PO SCH (08:27)
[2019-09-22] MEDS: ASPIRIN 81 MG ECTAB PO SCH (08:27)
[2019-09-22] MEDS: MULTIVITAMIN TAB PO SCH (08:28)
[2019-09-22] MEDS: METOPROLOL SUCC 50MG EXT REL TAB PO SCH (08:28)
== END 2019-09-22 10:41 | disposition home health service (06) | DRG 470 ==
LOC: ASU 05:04 → 3E 08:30